=== PATIENT | female | born 1950 | race Caucasian/White ===

== ENCOUNTER → 2023-09-24 08:22 | Outpatient (REF) | payer MEDICARE, OTHER, SELFPAY | LOC: RAD 08:22 | PROVIDERS: ATTENDING PHYSICIAN Internal Medicine Gastroenterology; FAMILY PHYSICIAN Internal Medicine | DX: R79.89 Other specified abnormal findings of blood chemistry (principal) | CPT/HCPCS: 76700 ==

== ENCOUNTER → 2023-10-04 06:33 | Day surgery (SDC) | payer MEDICARE, OTHER, SELFPAY ==
[2023-10-04 09:28] LABS: Glucose - Point of Care 128 mg/dl (70-99)
== END ==
LOC: GI 06:33
PROVIDERS: ATTENDING PHYSICIAN Internal Medicine Gastroenterology
DX: Z12.11 Encounter for screening for malignant neoplasm of colon (principal); Z86.010 Personal history of colon polyps; K64.8 Other hemorrhoids; K31.7 Polyp of stomach and duodenum; K31.89 Other diseases of stomach and duodenum; K21.9 Gastro-esophageal reflux disease without esophagitis; D12.8 Benign neoplasm of rectum; K63.5 Polyp of colon
CPT/HCPCS: 45385; 45381; 45380; 43239; 88305; 82962; 88342

== ENCOUNTER → 2023-12-28 10:13 | Outpatient (REF) | payer MEDICARE, OTHER, SELFPAY | LOC: WDC 10:13 | PROVIDERS: ATTENDING PHYSICIAN Surgery; FAMILY PHYSICIAN Internal Medicine | DX: Z85.3 Personal history of malignant neoplasm of breast (principal); Z12.31 Encounter for screening mammogram for malignant neoplasm of breast | CPT/HCPCS: 77063; 77067 ==

== ENCOUNTER → 2025-02-10 13:52 | Outpatient (REF) | payer MEDICARE, OTHER, SELFPAY | LOC: WDC 13:52 | PROVIDERS: ATTENDING PHYSICIAN Surgery; FAMILY PHYSICIAN Nurse Practitioner Adult Health | DX: C50.412 Malignant neoplasm of upper-outer quadrant of left female breast (principal); Z12.31 Encounter for screening mammogram for malignant neoplasm of breast | CPT/HCPCS: 77063; 77067 ==

== ENCOUNTER → 2025-02-18 08:55 | Outpatient (REF) | payer MEDICARE, OTHER, SELFPAY | LOC: WDC 08:55 | PROVIDERS: ATTENDING PHYSICIAN Surgery; FAMILY PHYSICIAN Nurse Practitioner Adult Health | DX: R92.8 Other abnormal and inconclusive findings on diagnostic imaging of breast (principal) | CPT/HCPCS: 76642 ==

== ENCOUNTER → 2025-02-20 07:45 | Outpatient (REF) | payer MEDICARE, OTHER, SELFPAY ==
--- NOTE | 2025-02-20 14:25 | OID.BR.INTR ---
[facility] Breast Navigator - Initial
- -
Date of Contact: 02/20/25
Met with patient. Will follow up as needed per protocol.
== END ==
LOC: WDC 07:45
PROVIDERS: ATTENDING PHYSICIAN Surgery
DX: N63.12 Unspecified lump in the right breast, upper inner quadrant (principal)
CPT/HCPCS: 19083; 88305; A4648

== ENCOUNTER → 2025-03-18 09:07 | Outpatient (REF) | payer MEDICARE, OTHER, SELFPAY ==
[2025-03-18 10:44] LABS: INR 0.99; PT 13.6 Sec (11.4-14.6)
[2025-03-18 11:16] LABS: Glycohemoglobin (HgbA1c) 5.4 % (4.0-5.6)
[2025-03-18 11:31] LABS: HDL Cholesterol 43 mg/dl; LDL Cholesterol, Calculated 126 mg/dl; Very Low Density Lipoprotein 29 mg/dl (0-30)
== END ==
LOC: REG 09:07
PROVIDERS: ATTENDING PHYSICIAN Internal Medicine Gastroenterology; FAMILY PHYSICIAN Nurse Practitioner Adult Health
DX: Z00.00 Encounter for general adult medical examination without abnormal findings (principal); R73.01 Impaired fasting glucose; R74.8 Abnormal levels of other serum enzymes; I10 Essential (primary) hypertension; E03.9 Hypothyroidism, unspecified; R79.89 Other specified abnormal findings of blood chemistry; K76.0 Fatty (change of) liver, not elsewhere classified
CPT/HCPCS: 80061; 83036; 84443; 85610

== ENCOUNTER 2025-03-31 06:14 | Inpatient (IN) | payer MEDICARE, OTHER, SELFPAY ==
[2025-03-18 10:30] LABS: Hematocrit 44.9 % (37.0-47.0); Hemoglobin 14.9 g/dL (12.0-16.0); Mean Corp Hgb Conc. 33.2 g/dL (33.0-37.0); Mean Corpuscular Volume 86.8 fL (81.0-99.0); Nucleated Red Blood Cells % 0 %; Platelet Count 206 10^3/uL (130-400); Red Cell Dist. Width 12.8 % (11.5-14.5)
[2025-03-18 11:16] LABS: Vitamin D, 25-OH*** 66.0 ng/mL (30-80)
[2025-03-18 11:28] LABS: ALT (SGPT) 27 U/L (0-35); AST (SGOT) 32 U/L (14-36); Albumin 5.3 g/dl (3.5-5.0); Alkaline Phosphatase 69 U/L (38-126); Blood Urea Nitrogen 22 mg/dl (7-17); Calcium 10.0 mg/dl (8.4-10.2); Carbon Dioxide 25 mmol/L (22-30); Chloride 101 mmol/L (98-107); Glucose 122 mg/dl (70-99); Potassium 4.6 mmol/L (3.5-5.1); Sodium 138 mmol/L (135-145); Total Protein 8.5 g/dl (6.3-8.2); eGFR > 60.00
[2025-03-18 11:34] LABS: Albumin 5.2 g/dl (3.5-5.0)
[2025-03-18 15:57] LABS: Prealbumin (Transthyretin) 28.3 mg/dl (17.6-36.0)
[2025-03-31] VITALS (14 sets, daily range): BP systolic 0–186; BP diastolic 51–91; BMI 31.6
[2025-03-31 07:06] LABS: Glucose - Point of Care 118 mg/dl (70-99)
[2025-03-31] MEDS: TYLENOL 1000 MG PO ×2 (07:06→17:42)
[2025-03-31] MEDS: NORMOSOL-R/PLASMALYTE-A 1000 IV (07:07)
--- NOTE | 2025-03-31 07:09 | W.SUR.PREOP ---
Pre-Operative Surgical Note
-
I have examined this patient prior to the performance of the scheduled procedure.
The patient's condition is unchanged from the time of the current History and
Physical and the patient is able to undergo the scheduled procedure.
[2025-03-31] MEDS: LOVENOX 40 MG SC (07:12)
[2025-03-31] MEDS: EMEND 40 MG PO (07:20)
--- NOTE | 2025-03-31 10:42 | W.IMMPOSTOP ---
Surgical Immed Post Op Note
-
Primary Surgeon: Gomez
Assisting Surgeon: None
Pre-op Diagnosis: Right breast carcinoma
Post-op Diagnosis: Same
Procedure Performed: Bilateral mastectomies, right sentinel lymph node mapping and biopsy
Anesthesia Type: GET
Specimen / Cultures: Bilateral breasts, right sentinel nodes
Estimated Blood Loss: 20cc
Complications: None
Operative Findings: None
--- NOTE | 2025-03-31 10:43 | OR.RPT ---
Operative Report
Operative Report
Date of procedure: 04/01/2025
Surgeon: Gomez
Preoperative diagnosis: Right breast carcinoma; history of left breast carcinoma
Postoperative diagnosis: Same
Procedure: bilateral mastectomies and right sentinel lymph node mapping and biopsy
The patient is a 74-year-old female with a prior history of left breast carcinoma treated with breast conservation surgery, axillary sampling, postoperative radiotherapy and adjuvant chemotherapy. 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 Imaging detected a right sided breast carcinoma and she presents for bilateral mastectomy, right sentinel lymph node mapping and biopsy, and reconstruction via expanders and a left latissimus flap to be performed by Dr. Koo.
On the day prior to the procedure the patient presented to the breast imaging center where
Technetium radiotracer was injected into the breast parenchyma. On the day of surgery she presented to same-day surgical services unit. She was prepped and verified site and procedures. DVT and antibiotic prophylaxis were provided. She was taken
to the operating room and in the supine position general anesthesia was induced. Zendejas catheter was inserted using aseptic technique and in the supine position both breasts were prepped and draped in the usual sterile fashion. An appropriate
timeout was performed by all team members.
Attention was first turned to the left side where the nipple areolar complex and prior lumpectomy incision were excised using the blade and PlasmaBlade. Skin was elevated from the breast capsule using the PlasmaBlade. Any larger vessels were
controlled with 3-0 silk tie. The breast was taken off the chest wall in a superior to inferior direction. Time out of body was noted and the specimen was oriented for the pathologist. Hemostasis was maintained with the cautery. Moist pack was
placed in the cavity and skin was closed with juan francisco.
Next the right breast was approached by making a vertical wedge incision in the skin incorporating removal of the nipple areolar complex. Skin flaps were elevated in the same manner on this side of the breast and vascular control was maintained.
This breast was taken off the chest wall and time out of body was noted. The specimen was oriented for the pathologist and sent for permanent analysis. This allowed access into the axilla on the right side. Clavipectoral fascia was incised using
the cautery and the neoprobe identified 2 sentinel node packets which were excised by clamping feeding vessels and tying with 3-0 silk. After the removal of the nodes there was a greater than fourfold reduction of background count. Hemostasis was
verified and a moist pack was placed on this side. Plastic surgery entered to begin the reconstructive portion of the procedure.
([id number])
Doswell Node Bx Breast Cancer
Doswell Node Bx Breast Cancer
Operation performed with curative intent: Yes
Tracer(s) to ID Doswell Nodes in Non-Neoadjuvant setting: Radioactive Tracer
Tracer(s) to ID Sentinal Nodes in the Neoadjuvant Setting: N/A
All nodes at end of dye-filled Lymphatic Channel removed: N/A
All Significantly Radioactive Nodes were removed: Yes
All Palpably Suspicious Nodes were Removed: Yes
Bx Proven Pos Nodes Marked Prior to Chemo ID'd & Removed: N/A
[2025-03-31 13:33] LABS: Glucose - Point of Care 185 mg/dl (70-99)
[2025-03-31] MEDS: ZOFRAN 4 MG IV (13:55)
--- NOTE | 2025-03-31 14:06 | W.IMMPOSTOP ---
Surgical Immed Post Op Note
-
Primary Surgeon: ANUM Koo MD
Assisting Surgeon:
Pre-op Diagnosis: History of breast cancer, radiation
Post-op Diagnosis: Same
Procedure Performed: Bilateral immediate breast reconstruction with tissue expanders, left latissimus myocutaneous flap breast reconstruction
Anesthesia Type: General
Specimen / Cultures: Per Dr. Dyer
Estimated Blood Loss: 30 cc
Complications: None
Operative Findings: Well-perfused flap without evidence of venous congestion
--- NOTE | 2025-03-31 14:06 | OR.RPT ---
Operative Report
Operative Report
Date of surgery: 03/31/2025
Surgeon: ANUM Koo MD
Preoperative diagnosis: History of left breast cancer, history of radiation, right breast cancer
Postoperative diagnosis: Same
Procedure:
1. Bilateral breast reconstruction, immediate, with tissue expanders
2. Left myocutaneous latissimus flap reconstruction of the left breast
3. Insertion of ADM [id number], right breast
4. Adjacent tissue transfer 10 x 20 cm, left chest
Anesthesia: General
EBL: 30 cc
Complications: None
Specimens: Per Dr. Dyer
Indication for procedure: Patient is a 74-year-old female with a prior history of a left breast cancer treated with lumpectomy radiation axillary dissection. She had residual fibrosis and fat necrosis of the left breast upon examination. She was
recently diagnosed with a new right sided breast cancer. She elected for bilateral mastectomy and desired reconstruction. Plan was made for autologous reconstruction of the left radiated breast in addition to a tissue biological science aide placement. This
would be in the form of a pedicled myocutaneous flap from the latissimus. On the right side, nonradiated breast, a standard prepectoral tissue biological science aide breast reconstruction was planned. Risks the procedure were reviewed at length including
infection, reconstructive failure, mastectomy skin flap necrosis, hematoma, seroma, donor site morbidity and scar.
Procedure in detail: Patient was identified preoperatively and the surgical site was confirmed to be the bilateral breast and left back. All questions were answered and consents were confirmed. The patient was marked accordingly. Patient was
taken back to the operating room and placed supine on the table. Anesthesia was induced and the patient was prepped and draped in the usual sterile fashion using ChloraPrep solution. Timeout for patient safety was performed was confirmed that
preoperative antibiotics have been administered and bilateral SCDs were in place. Dr. Dyer performed the bilateral mastectomies and her operative report will be dictated separately. Upon completion of the bilateral mastectomies, I entered the
case and inspected the resultant mastectomy defects. Meticulous hemostasis was ensured and the base width was measured and the tissue biological science aide and selected to be set at 13 cm width. On the right, 2 sheets of 6 x 16 core TIVA ADM were meshed after
rehydrating and antibiotic and Betadine solutions. A 13 cm tissue biological science aide was sutured to the chest wall in the right chest with a series of 2-0 silk sutures. The ADM construct was then draped over the tissue biological science aide and sutured in place with 2-0
Vicryl's. 2 drains were left and Marcaine blocks were performed in the pec and intercostal block fashion. Attention was then drawn to the left breast where meticulous hemostasis was again ensured. A lateral tunnel was created with a combination
of blunt dissection and Bovie electrocautery being sure to preserve any identifiable nerves. The wound was then closed temporarily and covered with Ioban and the patient was turned to the right lateral decubitus position. Patient was reprepped and
draped and a myocutaneous latissimus flap was elevated off the back. This was done after ensuring the arc of rotation and the width of the skin defect. 1% lidocaine with epinephrine was injected into the donor site and a 15 blade was used to
incise the skin. Bovie electrocautery was used to dissect down through the subcutaneous tissues to the latissimus muscle. The borders of the latissimus muscle were then dissected free and this was elevated being sure to protect the pedicle. Care
was taken to ensure serratus remained down. Meticulous hemostasis was ensured and a drain was left in the donor site. The donor site was closed with 0 PDS sutures followed by INSORB stapler and 3-0 Monocryl. The flap was able to be rotated to the
chest wall through the subcutaneous tunnel without undue tension or kinking. Attention was then drawn back to the left chest wall where a 13 cm biological science aide was sutured in place. The latissimus muscle was then draped over the biological science aide and inset with a
series of 2-0 Vicryl's. 2 drains were left in this space and tunneled in the preaxial line subcutaneously. Adjacent tissue transfer of the mastectomy skin flap was then performed with backcut medially and laterally to accommodate the skin island
from the latissimus flap. Flap was then inset in layers using the INSORB stapler, 3-0 Monocryl and 4-0 Monocryl. At the conclusion of the case, the flap showed evidence of good arterial perfusion without any evidence of venous congestion. The
patient's wounds were dressed. She was extubated taken the PACU further care. All counts were correct at the end the case and the patient tolerated well.
[2025-03-31] MEDS: DILAUDID 0.25 MG IV (14:08)
[2025-03-31] MEDS: COMPAZINE 5 MG IV (14:24)
[2025-03-31] MEDS: D5/0.45%NSS with KCL 20 MEQ 1000 IV (15:56)
[2025-03-31] MEDS: ANCEF 5 IV (15:56)
[2025-03-31 16:18] LABS: Glucose - Point of Care 219 mg/dl (70-99)
--- NOTE | 2025-03-31 16:58 | PTCARENOTE ---
1545 Pt arrived from PACU in bed. Pt AAOX3. VSS. 2L O2 97%. 5 Jarrett drains. primeseal L side of back. small drainage. Oriented to room and call macdonald. bed lockeed and in lowest position.
[2025-03-31 17:10] LABS: Glucose - Point of Care 239 mg/dl (70-99)
[2025-03-31] MEDS: GLUCOPHAGE XR EXTENDED RELEASE 500 MG PO (17:41)
[2025-03-31] MEDS: NEURONTIN 300 MG PO ×2 (17:41→21:04)
[2025-03-31] MEDS: COLACE 100 MG PO (21:05)
[2025-03-31 21:08] LABS: Glucose - Point of Care 253 mg/dl (70-99)
[2025-03-31] MEDS: NOVOLOG FLEXPEN-MODERATE RESISTANCE 5 UNITS SC (21:10)
[2025-04-01] MEDS: TYLENOL 1000 MG PO ×3 (00:24→11:03)
[2025-04-01] MEDS: ANCEF 5 IV ×2 (00:24→08:36)
[2025-04-01 03:00] VITALS: BP 117/56
[2025-04-01] MEDS: D5/0.45%NSS with KCL 20 MEQ 1000 IV (03:54)
[2025-04-01] MEDS: SYNTHROID 125 MCG PO (05:30)
[2025-04-01 06:48] LABS: Blood Urea Nitrogen 12 mg/dl (7-17); Calcium 8.5 mg/dl (8.4-10.2); Carbon Dioxide 25 mmol/L (22-30); Chloride 106 mmol/L (98-107); Estimated Creatinine Clearance 90 ml/min; Glucose 125 mg/dl (70-99); Potassium 4.5 mmol/L (3.5-5.1); Sodium 136 mmol/L (135-145); eGFR > 60.00
[2025-04-01 07:07] LABS: Hematocrit 34.4 % (37.0-47.0); Hemoglobin 11.6 g/dL (12.0-16.0)
[2025-04-01 07:45] VITALS: BP 140/59
[2025-04-01 08:20] VITALS: BP 140/59
[2025-04-01] MEDS: COLACE 100 MG PO (08:36)
[2025-04-01] MEDS: GLUCOPHAGE XR EXTENDED RELEASE 500 MG PO (08:37)
[2025-04-01] MEDS: PROTONIX 40 MG PO (08:37)
[2025-04-01] MEDS: VITAMIN D3 (cholecalciferol) 50 MCG PO (08:37)
[2025-04-01] MEDS: MAGNESIUM OXIDE 400 MG PO (08:37)
[2025-04-01] MEDS: NEURONTIN 300 MG PO ×2 (08:37→15:05)
[2025-04-01 08:40] LABS: Glucose - Point of Care 130 mg/dl (70-99)
[2025-04-01] MEDS: NOVOLOG FLEXPEN-MODERATE RESISTANCE SC ×2 (08:51→12:50)
--- NOTE | 2025-04-01 10:20 | CM ---
Addendum entered by [place] Wu RN 04/01/25 15:12:
IMM reviewed.
Original Note:
Reviewed the chart notes and spoke with the patient at the bedside. The patient resides with her daughter in a two story home with three steps to enter. The patient reports no DME/SNF in the past, but has had [facility] in the past. The patient is
agreeable to a referral being sent to have [facility] again. Referral sent in [facility]. CM continues to be available to patient/family and is monitoring medical plan for needs at discharge.
Plan: Discharge to home with [facility] services.
[2025-04-01] MEDS: ULTRAM 50 MG PO (11:02)
[2025-04-01 11:33] VITALS: BP 158/74
[2025-04-01 12:49] LABS: Glucose - Point of Care 135 mg/dl (70-99)
--- NOTE | 2025-04-01 14:19 | W.PN.PLAS ---
Progress Note
Subjective Data
Doing well
Pain well controlled
Denies SOB
Objective Data
Vital Signs
Temp Pulse Resp BP Pulse Ox
98.1 F 92 16 158/74 97
04/01/25 11:33 04/01/25 11:33 04/01/25 11:33 04/01/25 11:33 04/01/25 11:33
Intake and Output
03/31/25 04/01/25 04/02/25
06:59 06:59 06:59
Intake Total 920 / 920 840 / 840
Output Total 980 / 980 215 / 215
Balance -60 / -60 625 / 625
Intake:
Oral fluids 480 / 480 840 / 840
IV fluids (Total) 440 / 440
Normosol 200 / 200
Output:
Drain Output (Total) 580 / 580 215 / 215
Left Breast A 180 / 180 120 / 120
Left Breast B 30 / 30 5 / 5
Left Breast C 75 / 75 60 / 60
Right Breast D 205 / 205 30 / 30
Right Breast E 90 / 90
Urine, Zendejas 400 / 400
Other:
Number of approximated MODERATE 1
amounts of urine
Number of approximated LARGE 1 1
amounts of urine
PEx:
NAD
No increased WOB
Left latissimus flap well perfused in appearance without evidence of venous congestion
Bilateral expanders
HOLLY drains serosanguinous
No undrained collections
Lab Results
04/01/25 06:02
04/01/25 06:02
Assessment / Plan
s/p bilateral mastectomy and immediate shallot cleaner recon with left latissimus flap
Discharge to home with VN
--- NOTE | 2025-04-01 14:21 | W.DCSUMMARY ---
Discharge Summary
Discharge Data
Date of Admission: 03/31/25
Date of Discharge: 04/01/25
-
Pending Results: No
Hospital Course
Routine postop course after mastectomy and reconstruction. On POD1 she was ambulating, tolerating PO and pain well controlled. Discharged to home with VN and close follow up.
Discharge Plan
-
Patient Disposition: Home (Routine Discharge)
Discharge Diagnosis/Procedures: s/p bilateral mastectomy and reconstruction
Condition: Good
Diet: Regular
Activity: No strenuous activity
Additional Activity: T Enrique Arms for ROM
Driving Restrictions: Not until seen by your Dr
Bathing Restrictions: OK to Shower
Other Services: VN
Wound Care: ABD pads as needed, light compressive bra, strip and record drain output twice daily
Referrals:
Shannon Mora CRNP [Family Provider, General]
Prescriptions:
New
docusate sodium 100 mg Capsule
100 mg PO BID 14 Days Qty: 28 0RF
gabapentin 300 mg capsule
300 mg PO TID 30 Days Qty: 90 0RF
tramadol 50 mg Tablet
50 mg PO Q6HPRN PRN (Reason: moderate pain) 7 Days Qty: 20 0RF
diazepam 5 mg Tablet
5 mg PO TIDPRN PRN (Reason: Muscle Spasms) 14 Days Qty: 42 0RF
cefadroxil 500 mg capsule
500 mg PO BID Qty: 42 0RF
Continued
levothyroxine 125 MCG tablet
125 mcg PO DAILY
acetaminophen 500 mg Tablet
500 - 1,000 mg PO Q6H PRN (Reason: PAIN)
famotidine 20 mg Tablet
20 mg PO HS
pantoprazole 40 mg Tablet,Delayed Release (Dr/Ec)
40 mg PO DAILY
ibuprofen [Advil] 200 mg Tablet
400 mg PO Q6H PRN (Reason: PAIN)
metformin 500 mg Tablet Extended Release 24hr
500 mg PO BID
magnesium glycinate 100 mg Tablet
150 mg PO BID
vitamin D3-vitamin K2 125-90 mcg Capsule
1 cap PO DAILY
GennaMD 130 mg Capsule
130 mg PO DAILY
Rx Instructions:
130MG OR 36 MG SOLUBLE PAC
Calm Now Ashwagandha
1 cap PO PRN PRN (Reason: ANXIETY/INSOMNIA)
Standard Process Olprima Epa/Dha
2,400 mg PO DAILY
Rx Instructions:
1 TAB =1200MG;
PER PT TAKING 2 TAB DAILY (TOTAL 2400MG)
Standard Process Jesus Alberto-Ma Plus
450 mg PO DAILY
Standard Process Congaplex
2 cap PO PRN PRN (Reason: IMMUNITY/PROPHYLACTIC MEASURE)
Solv Wellness Mage Probiotic
1 cap PO DAILY
Standard Process Gastrex
2 cap PO BID
Discharge Orders:
Discharge Patient (As Directed); Ordered 04/01/25
Ordered By: Jefry Koo
Discharge Date and Time
Print Language: WELSH
[2025-04-01 15:05] VITALS: BP 152/78
== END 2025-04-01 15:55 | disposition home health service (06) | DRG 581 ==
LOC: 2 SOUTH 06:14
PROVIDERS: ADMITTING PHYSICIAN Surgery; FAMILY PHYSICIAN Nurse Practitioner Adult Health; REFERRING PHYSICIAN Surgery Plastic and Reconstructive Surgery
PROC: 0HHV0NZ Insertion of Tissue Expander into Bilateral Breast, Open Approach (ICD-10-PCS; 2025-03-31)
PROC: 0HTV0ZZ Resection of Bilateral Breast, Open Approach (ICD-10-PCS; 2025-03-31)
PROC: 07B50ZX Excision of Right Axillary Lymphatic, Open Approach, Diagnostic (ICD-10-PCS; 2025-03-31)
PROC: 0HRU075 Replacement of Left Breast using Latissimus Dorsi Myocutaneous Flap, Open Approach (ICD-10-PCS; 2025-03-31)
DX: C50.411 Malignant neoplasm of upper-outer quadrant of right female breast (principal); Z85.3 Personal history of malignant neoplasm of breast; Z92.3 Personal history of irradiation; Z17.0 Estrogen receptor positive status [ER+]
CPT/HCPCS: 36415; 38792; 76942; 80048; 80053; 82040; 82306; 82962; 84134; 85014; 85018; 85025; 88304; 88307; 88342; 93005; A4648; A9541; C1729; C1789; Q4100

== ENCOUNTER → 2025-05-11 13:55 | Outpatient (REF) | payer MEDICARE, OTHER, SELFPAY | LOC: CLAB 13:55 | PROVIDERS: ATTENDING PHYSICIAN Surgery Plastic and Reconstructive Surgery | DX: L76.82 Other postprocedural complications of skin and subcutaneous tissue (principal) | CPT/HCPCS: 87070; 87205 ==

== ENCOUNTER 2025-05-19 06:23 | Day surgery (SDC) | payer MEDICARE, OTHER, SELFPAY ==
[2025-05-19] VITALS (7 sets, daily range): BP systolic 40–152; BP diastolic 57–79; BMI 32.0
[2025-05-19 13:51] LABS: Glucose - Point of Care 114 mg/dl (70-99)
--- NOTE | 2025-05-19 15:27 | W.IMMPOSTOP ---
Surgical Immed Post Op Note
-
Primary Surgeon: ANUM Koo MD
Assisting Surgeon:
Pre-op Diagnosis: History of breast cancer
Post-op Diagnosis: Same
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
Anesthesia Type: General
Specimen / Cultures: Left breast fluid for culture
Estimated Blood Loss: 15 cc
Complications: None
Operative Findings: As expected
--- NOTE | 2025-05-19 15:27 | OR.RPT ---
Operative Report
Operative Report
Date of Surgery: 05/19/25
Surgeon: ANUM Koo MD
Preoperative diagnosis: History of breast cancer, status post bilateral mastectomy, history of prior radiation
Postoperative diagnosis: Same
Procedure:
1. 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
2. Debridement to fascia, excisional, left breast 15 x 15 cm
Anesthesia: General
EBL: 15 cc
Cultures: Left periprosthetic fluid for aerobic and anaerobic
Complications: None
Indications for procedure: Patient is a 74-year-old female with a history of breast cancer. She had undergone prior lumpectomy and radiation and then had a recurrence requiring bilateral mastectomy. A latissimus flap and bilateral tissue expanders
were performed for breast reconstruction at the time of mastectomy. She followed a routine postoperative course albeit she had a recurrent seroma around the left beehive kiln supervisor. This led to wound dehiscence necessitating removal. Latissimus flap
remained viable and would provide stable breast reconstruction. A plan was made to remove the tissue beehive kiln supervisor, take cultures, and debride the area to promote wound healing. Risks were reviewed at length including recurrent infection, hematoma,
seroma, asymmetry, delayed wound healing and need for repeat procedure. She understood these risks desires to proceed
Procedure in detail: Patient was identified preoperatively and the surgical site was confirmed to be the left breast. All questions were answered and consents were confirmed. Patient was taken back to the operating room placed supine on table.
Anesthesia was induced and the patient was prepped and draped in usual sterile fashion using Betadine solution. Timeout for patient safety was performed was confirmed that bilateral SCDs were in place and preoperative antibiotics were administered.
Procedure began with an excisional debridement of the dehisced wound edges of the area of the inferomedial breast. The tissue beehive kiln supervisor was removed and cultures were taken for aerobic and anaerobic from the periprosthetic fluid. Excisional
debridement was then performed over an area of approximately 15 x 15 cm where the beehive kiln supervisor pocket existed. Additional debridement was performed superficially with a Versajet and 3 L of normal saline as well as antibiotic irrigation. A drain was
placed in the space after confirming hemostasis. This was sutured in place with 2-0 Prolene. The wound was then closed in layers using 3-0 and 4-0 Monocryl. Patient tolerated the procedure well and was performed out complication, all counts were
correct at the end the case. She was extubated and taken the PACU for further care.
[2025-05-19 15:39] LABS: Glucose - Point of Care 126 mg/dl (70-99)
[2025-05-19] MEDS: MORPHINE SULFATE 1 MG IV (15:53)
[2025-05-19] MEDS: ROXICODONE 5 MG PO (16:57)
== END 2025-05-19 17:11 | disposition home or self-care (01) ==
LOC: SDS 06:23
PROVIDERS: ATTENDING PHYSICIAN Surgery Plastic and Reconstructive Surgery
DX: T85.79XA Infection and inflammatory reaction due to other internal prosthetic devices, implants and grafts, initial encounter (principal); Y83.1 Surgical operation with implant of artificial internal device as the cause of abnormal reaction of the patient, or of later complication, without mention of misadventure at the time of the procedure; Z85.3 Personal history of malignant neoplasm of breast; Z90.13 Acquired absence of bilateral breasts and nipples
CPT/HCPCS: 11043; 11971; 11046 ×4; 82962; 87070; 87075; 87077; 87186; 87205